=== PATIENT | female | born 1990 | race African-American/Black ===

== ENCOUNTER → 2019-06-08 | Outpatient (CLI) | payer MEDICAID ==
[2019-06-08 15:18] LABS: HCT 32.3 % (34.0-46.0); HGB 11.4 gm/dL (11.4-16.0); MCH 31.5 pg (25.0-35.0); MCHC 35.4 g/dL (31.0-37.0); Platelet Count 296 k/uL (150-450); RBC 3.63 m/uL (3.80-5.40); RDW 13.9 % (11.5-15.5); WBC 7.4 k/uL (3.8-10.6)
[2019-06-08 20:37] LABS: HIV 1 AB Non-Reactive (Non-Reactive); HIV AB P24 Non-Reactive (Non-Reactive); HIV P24 AG Non-Reactive (Non-Reactive)
[2019-06-08 21:03] LABS: African American GFR (CKD) 144.8 (60.0-200.0)
[2019-06-09 06:46] LABS: Toxoplasma Antibody (IgG) <3.0 IU/mL (<7.2); Toxoplasma Antibody (IgM) <3.0 AU/mL (<8.0)
== END | disposition home or self-care (01) ==
LOC: LABWHC1 14:53
PROVIDERS: ATTEND Obstetrics & Gynecology
DX: Z34.82 Encounter for supervision of other normal pregnancy, second trimester (principal); R53.83 Other fatigue
CPT/HCPCS: 36415; 82565; 82947; 85027; 86762; 86777; 86778; 86780; 86850; 86900; 86901; 87340; 87390

== ENCOUNTER → 2019-07-05 | Outpatient (CLI) | payer MEDICAID ==
--- NOTE | 2019-07-06 16:58 | US ---
EXAMINATION TYPE: US OB anatomy transabd DATE OF EXAM: 07/05/2019 COMPARISON: NONE HISTORY: O36.62X0 Large for dates 2nd trimester LGA TECHNIQUE: Transabdominal (TA) EXAM MEASUREMENTS: GESTATIONAL AGE / DATING Physician Established: (19 weeks/2 days) EDC: 11/27/19 Dates by LMP: unknown Dates by First Scan: no prior exam Dates by Current Scan for: (19 weeks/4 days) EDC: 11/25/19 SURVEY IUP: Single PLACENTA: Anterior PREVIA: No previa MARCO A: 12.0 cm Normal CERVICAL LENGTH (transabdominal: norm > 3.0cm): 3.0cm BIOMETRY PRESENTATION: Variable LIE: transverse head maternal LT BPD: 4.4 cm 19 weeks / 3 days HC: 17.4 cm 20 weeks / 0 days AC: 15.1 cm 20 weeks / 3 days FL: 3.1 cm 19 weeks / 5 days ESTIMATED WEIGHT IN GRAMS: 314 grams ESTIMATED WEIGHT IN LBS/OZ: 0 lbs. 11 oz. WEIGHT PERCENTAGE BASED ON ESTABLISHED DATE: 76 % HC/AC: 1.11 Normal FL/AC: 21% Normal HEART RATE: 146 bpm RHYTHM: Normal ANATOMY SEEN (within normal limits): * Lateral Vent (< 1 cm) 0.5 cm * Cisterna Magna (< 1.1 cm) 0.4 cm * Nuchal Fold (< 0.6 cm) 0.3 cm * Cerebellum (varies with age) 1.8 cm Choroid Plexus (bilateral) Midline Falx Cavus Septi Pellucidi Four Chamber Heart Outflow tracts: LVOT/RVOT Stomach Situs Nose / Lips Diaphragm Kidneys (bilateral) Bladder Cord Insert Three Vessel Cord Longitudinal Spine Transverse Spine Arms (bilateral) Legs (bilateral) IMPRESSION: 1. Single intrauterine gestation estimated at 19 weeks 4 days gestation based on current ultrasound m easurements. Cardiac activity measures 146 bpm.
== END | disposition home or self-care (01) ==
LOC: RADUSWWP 16:26
PROVIDERS: ATTEND Obstetrics & Gynecology
DX: O36.62X0 Maternal care for excessive fetal growth, second trimester, not applicable or unspecified (principal); Z3A.19 19 weeks gestation of pregnancy
CPT/HCPCS: 76811

== ENCOUNTER 2019-07-26 14:50 | Outpatient (CLI) | payer MEDICAID ==
[2019-07-26 15:34] VITALS: BP 107/64; PULSE 99; RESP 17; TEMP 97.7
--- NOTE | 2019-07-26 16:08 | US ---
EXAMINATION TYPE: US OB >= 14 wk fetus DATE OF EXAM: 07/26/2019 COMPARISON: None CLINICAL HISTORY: bleeding bleeding, cramping TECHNIQUE: Transabdominal (TA) GESTATIONAL AGE / DATING Physician Established: (22 weeks/2 days) EDC: 11/27/2019 Dates by Current Scan: (22 weeks/5 days) EDC: 11/24/2019 Beta HCG (if available): Not available at this time SURVEY IUP: Single PLACENTA: Anterior PREVIA: No Previa MARCO A: 23.0 cm Polyhydramnios CERVICAL LENGTH (transabdominal: norm > 3.0cm): 3.4 cm BIOMETRY PRESENTATION: Variable BPD: 5.5 cm 22 weeks / 6 days HC: 20.1 cm 22 weeks / 2 days AC: 17.7 cm 22 weeks / 5 days FL: 4.0 cm 23 weeks / 0 days ESTIMATED WEIGHT IN GRAMS: 526 grams ESTIMATED WEIGHT IN LBS/OZ: 1 lbs. 3 oz. WEIGHT PERCENTAGE BASED ON ESTABLISHED DATES: 65% HC/AC: 1.1 Normal FL/AC: 23% Normal HEART RATE: 161 bpm RHYTHM: Normal Single live IUP measuring 22 weeks 5 days. IMPRESSION: Limited survey. Single viable intrauterine corresponding to an ultrasound age of 22 w eeks 5 days with estimated date of delivery 11/24/2019.
--- NOTE | 2019-08-17 03:43 | P.MSEPDOC ---
Presenting Problems - Arrival Data Date of Arrival on Unit: 07/26/19 Time of Arrival on Unit: 14:50 Mode of Transport: Portable - Complaint OB-Reason for Admission/Chief Complaint: Other Comment: Pt of dr forde, presents to triage with c/o bleeding since night and. cramping that is always present but has become more intense and alarming accompanied by the bleeding. 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 Pt describes the bleeding as follows: . small amount, friday heavier and wore a pad, friday light bleeding, friday heavy in the morning then stopped in evening, some spotting this morning (friday). Medical History - Information : 2 Para: 1 Term: 1 : 0 Abortions: Spontaneous or Elective: 0 Number of Living Children: 1 - Gestational Age Gestational Age by MARCUS (wks/days): 22 Weeks and 2 Days Review of Systems - Review of Systems Constitutional: No problems Breast: No problems ENT: No problems Cardiovascular: No problems Respiratory: No problems Gastrointestinal: No problems Genitourinary: No problems Musculoskeletal: No problems Neurological: No problems Skin: No problems Vital Signs - Temperature Temperature: 97.7 F Temperature Source: Temporal Artery Scan - Pulse Right Brachial Pulse Rate: 99 Pulse Assessment Method: Automatic Cuff - Respirations Respiratory Rate: 17 Oxygen Delivery Method: Room Air O2 Sat by Pulse Oximetry: 100 - Blood Pressure Right Arm Blood Pressure: 107/64 Blood Pressure Mean: 78 Blood Pressure Source: Automatic Cuff Medical Screen Scoring (Pre) - Cervical Exam Dilation: Exam Deferred Effacement: Exam Deferred Membranes: Intact - Uterine Contractions Frequency: N/A Duration: N/A Intensity: N/A - Maternal Vital Signs Maternal Temperature: N/A Maternal Blood Pressure: N/A Signs of Preeclampsia: N/A Maternal Respirations: N/A - Maternal Trauma Maternal Trauma: N/A - Assessment - Baby A Baseline FHR: 160 Position: N/A Station: N/A - Total Score - Baby A Total Score - Baby A: 0 - Total Score - Baby B Total Score - Baby B: 0 - Total Score - Baby C Total Score - Baby C: 0 - Level of Risk - Baby A Level of Risk - Baby A: Low (0-5) - Level of Risk - Baby B Level of Risk - Baby B: Low (0-5) - Level of Risk - Baby C Level of Risk - Baby C: Low (0-5) - Pain Assessment Pain Location and Character: Lower, Abdomen Pain Scale Used: Numeric (1 - 10) Pain Intensity: 8 Pain Management Goal: 4 Pain Description: *Acute, Cramping Pain Radiation Location: none Pain Frequency: Intermittent Pain Duration: 2 Pain Duration Units: Days Pain Behavior: None Exhibited Pain Aggravating Factors: None Physician Notification (Pre) - Physician Notified Physician Notified Date: 07/26/19 Physician Notified Time: 15:20 Physician/Practitioner Notifed:: Dr Forde Spoke With: Dr Forde New Order Received: Yes (bedside u/s, rn to perform cervical exam if no previa) Medical Screen Scoring (Post) - Cervical Exam Dilation: 0 cm = 0 Membranes: Intact - Uterine Contractions Frequency: N/A Duration: N/A Intensity: N/A - Maternal Vital Signs Maternal Temperature: N/A Maternal Blood Pressure: N/A Signs of Preeclampsia: N/A Maternal Respirations: N/A - Maternal Trauma Maternal Trauma: N/A - Total Score Total Score - Baby A: 0 Total Score - Baby B: 0 Total Score - Baby C: 0 - Post Treatment Level of Risk Post Treatment Level of Risk - Baby A: Low (0-5) Physician Notification (Post) - Physician Notified Physician Notified Date: 07/26/19 Physician Notified Time: 16:20 Physician/Practitioner Notified:: dr forde Spoke With: dr forde New Order Received: Yes (dc home) Disposition - Disposition OB Disposition: Discharge to home, Written follow up instructions reviewed Discharge Date: 07/26/19 Discharge Time: 16:28 I agree with the RN Medical Screening Exam: Yes Risk & Benefit of care provided described in d/c instruction: Yes Diagnosis: ANTEPARTUM HEMORRHAGE W COAG DEFECT, UNSP, SECOND TRIMESTER
== END 2019-07-26 16:28 | disposition home or self-care (01) ==
LOC: FBPOP 14:50
PROVIDERS: ATTEND Obstetrics & Gynecology
DX: O46.002 Antepartum hemorrhage with coagulation defect, unspecified, second trimester (principal); Z3A.22 22 weeks gestation of pregnancy
CPT/HCPCS: 76805; 99213

== ENCOUNTER 2019-08-17 16:00 | Emergency (ER) | payer MEDICAID ==
[2019-08-17 16:08] VITALS: BP 105/61; PULSE 113; RESP 16; TEMP 98
--- NOTE | 2019-08-17 16:19 | ED ---
Female Urogenital HPI - General Chief complaint: Urogenital Stated complaint: Female Time Seen by Provider: 08/17/19 16:06 Source: patient Mode of arrival: ambulatory Limitations: no limitations - History of Present Illness Initial comments: 29-year-old female presented for vaginal discharge and external vaginal irritation. Patient states for the past week she has had increased vaginal discharge external vaginal irritation. Patient states she called her CASTING TRUCKER who thought that this is most likely physiological. Patient denies concern for STI. Denies abdominal pain cramping or vaginal bleeding. Patient states there is a slight odor. Denies any fishy odorous. Patient denies dysuria urgency frequency hematuria. Patient has no other complaints. Remaining review of system negative. Appears well upon arrival - Related Data Home Medications Medication Instructions Recorded Confirmed No Known Home Medications 07/26/19 07/26/19 Allergies Allergy/AdvReac Type Severity Reaction Status Date / Time No Known Allergies Allergy Verified 08/17/19 16:08 Review of Systems ROS Statement: Those systems with pertinent positive or pertinent negative responses have been documented in the HPI. ROS Other: All systems not noted in ROS Statement are negative. Past Medical History Past Medical History: No Reported History History of Any Multi-Drug Resistant Organisms: None Reported Past Surgical History: No Surgical Hx Reported Past Psychological History: No Psychological Hx Reported Smoking Status: Never smoker Past Alcohol Use History: None Reported Past Drug Use History: None Reported General Exam - General Exam Comments Initial Comments: General: The patient is awake and alert, in no distress, and does not appear acutely ill. Eye: Pupils are equal, round and reactive to light, extra-ocular movements are intact. No nystagmus. There is normal conjunctiva bilaterally. No signs of icterus. Gastrointestinal: Abdomen consistent with , non-tender abdomen. Mild external irritation noted. No lesiosn. Scant amount of thin white discharge in vaginal vault. Cervical os closed. No chandelier sign Musculoskeletal: Normal ROM, no tenderness. Strength 5/5. Sensation intact. Pulses equal bilaterally 2+. Neurological: A&O x 3. CN II-XII intact grossly, There are no obvious motor or sensory deficits. Coordination appears grossly intact. Speech is normal. Skin: Skin is warm and dry and no rashes or lesions are noted. Psychiatric: Cooperative, appropriate mood & affect, normal judgment. Limitations: no limitations Course Vital Signs 08/17/19 16:05 Temperature 98.0 F Pulse Rate 113 H Respiratory 16 Rate Blood Pressure 105/61 O2 Sat by Pulse 98 Oximetry Medical Decision Making - Medical Decision Making 29-year-old female presenting to the emergency department for evaluation of vaginal discharge. Told by CASTING TRUCKER most likely physiological. No odors or significant findings on physical examination. Scant amount of discharge with no bleeding. heart tones obtained no abdominal complaints. Patient appears well, encouraged to use monistat intra vaginally (nothing by mouth) if symptoms are persistent and to see OBGYN. Return parameters discussed patient discharged appearing well. Rapid trichomonas (-). Case discussed with Dr. Escobar who was agreeable with care plan. - Lab Data Lab Results 08/17/19 Range/Units 16:26 Trichomonas Ag (Rapid) Negative (Negative) Disposition Clinical Impression: Vaginal discharge, Vaginal irritation Disposition: HOME SELF-CARE Condition: Good Instructions (If sedation given, give patient instructions): Yeast Infection (ED) Additional Instructions: Please use medication as discussed, over the counter MONASTAT VAGINAL CREAM, NO ORAL MEDICATIONS. Please follow-up with OBGYN. Please return to emergency room if the symptoms increase or worsen or for any other concerns. Is patient prescribed a controlled substance at d/c from ED?: No Referrals: Nonstaff,Physician [Primary Care Provider] - 1-2 days Time of Disposition: 16:38
[2019-08-19 13:45] LABS: C. trachomatis,PCR Negative (Neg,Equiv); Chlamydia trachomatis Source Vagina; N. gonorrhoeae,PCR Negative (Neg,Equiv); Neisseria Source Vagina
== END 2019-08-17 16:50 | disposition home or self-care (01) ==
LOC: EC 16:00
DX: O99.89 Other specified diseases and conditions complicating pregnancy, childbirth and the puerperium (principal); N89.8 Other specified noninflammatory disorders of vagina; Z3A.25 25 weeks gestation of pregnancy
CPT/HCPCS: 87070; 87491; 87591; 87808; 99284

== ENCOUNTER → 2019-08-17 | Outpatient (CLI) | payer MEDICAID ==
[2019-08-17 16:18] LABS: HCT 32.5 % (34.0-46.0); HGB 10.9 gm/dL (11.4-16.0); MCH 31.3 pg (25.0-35.0); MCHC 33.4 g/dL (31.0-37.0); MCV 93.7 fL (80.0-100.0); Mean Platelet Volume 7.2; Platelet Count 248 k/uL (150-450); RBC 3.47 m/uL (3.80-5.40); RDW 13.2 % (11.5-15.5); WBC 9.8 k/uL (3.8-10.6)
== END ==
LOC: LABWHC1 14:48
PROVIDERS: ATTEND Obstetrics & Gynecology
DX: Z34.82 Encounter for supervision of other normal pregnancy, second trimester (principal); Z3A.00 Weeks of gestation of pregnancy not specified
CPT/HCPCS: 36415; 82950; 85027

== ENCOUNTER → 2019-10-28 | Outpatient (CLI) | payer MEDICAID ==
--- NOTE | 2019-10-28 16:32 | US ---
EXAMINATION TYPE: US OB >= 14 wk fetus DATE OF EXAM: 10/28/2019 COMPARISON: US second trimester July 26, 2019 CLINICAL HISTORY: O36.63X0 Large for dates 3rd trimester TECHNIQUE: Transabdominal (TA) GESTATIONAL AGE / DATING Physician Established: (35 weeks/5 days) EDC: 11/27/19 Dates by First Scan: Not available Dates by Current Scan: (34 weeks/1 days) EDC: 12/08/19 SURVEY IUP: Single PLACENTA: Anterior PREVIA: No Previa MARCO A: 12.8 cm CERVICAL LENGTH (transabdominal: norm > 3.0cm): 3.0 cm BIOMETRY PRESENTATION: Vertex BPD: 8.4 cm 33 weeks / 5 days HC: 30.8 cm 34 weeks / 3 days AC: 30.3 cm 34 weeks / 2 days FL: 6.8cm 35 weeks / 0 days ESTIMATED WEIGHT IN GRAMS: 2431 grams ESTIMATED WEIGHT IN LBS/OZ: 5 lbs. 6 oz. WEIGHT PERCENTAGE BASED ON ESTABLISHED DATES: 18% HC/AC: 1.0 FL/AC: 22.5 HEART RATE: 147 bpm RHYTHM: Normal Anatomy Seen: Stomach Kidneys Bladder Nose/Lips Cavum Septum Pellucidi 3 vessel chord Single live intrauterine gestation is redemonstrated. Normal cephalic presentation seen on current st udy. No suspicious cervical thinning. No placenta previa. Calculated amniotic fluid index within norm al limits. biometry measurements congruent and pelvis within normal limits with satisfactory in terval progression. Some anatomical structures noted within normal limits as detailed above during re al-time scanning less well-seen on still images saved. IMPRESSION: As above.
== END | disposition home or self-care (01) ==
LOC: RADUSWWP 14:55
PROVIDERS: ATTEND Obstetrics & Gynecology
DX: O36.63X1 Maternal care for excessive fetal growth, third trimester, fetus 1 (principal); Z3A.34 34 weeks gestation of pregnancy
CPT/HCPCS: 76805

== ENCOUNTER 2019-11-07 11:45 | Emergency (ER) | payer MEDICAID ==
[2019-11-07 12:28] VITALS: RESP 16
[2019-11-07 13:07] LABS: Amorphous Sediment,Urine Rare /hpf; Appearance,Urine Turbid (Clear); Bacteria,Urine Rare /hpf; Bilirubin,Urine Negative (Negative); Blood,Urine Small (Negative); Color,Urine Yellow; Glucose,Urine (UA) Negative (Negative); Ketones,Urine 1+ (Negative); Leukocyte Esterase,Urine Large (Negative); Mucus,Urine Few /hpf; Nitrite,Urine Negative (Negative); PH, Urine 6.5 (5.0-8.0); Protein,Urine Trace (Negative); RBC,Urine 9 /hpf (0-5); Specific Gravity,Urine 1.018 (1.001-1.035); Squamous Epithelial Cell,Urine 50 /hpf (0-4); Urobilinogen,Urine <2.0 mg/dL (<2.0); WBC,Urine 65 /hpf (0-5)
--- NOTE | 2019-11-07 13:55 | ED ---
Upper Extremity HPI - General Chief Complaint: Extremity Injury, Upper Stated Complaint: swollen hands/wrists Time Seen by Provider: 11/07/19 12:37 Source: patient, RN notes reviewed, old records reviewed Mode of arrival: ambulatory Limitations: no limitations - History of Present Illness Initial Comments: 29 year old female, currently 37 weeks . female, She presents with complaint of swollen hands for a few months. 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 She states that she has not had increased salt intake. She denies chest pain or shorntess of breath. Denies problems with including vaginal bleeding or discharge. Denies cramps. - Related Data Previous Rx's Medication Instructions Recorded Cephalexin [Keflex] 500 mg PO Q6HR 7 Days #28 cap 11/07/19 Allergies Allergy/AdvReac Type Severity Reaction Status Date / Time No Known Allergies Allergy Verified 11/07/19 12:28 Review of Systems ROS Statement: Those systems with pertinent positive or pertinent negative responses have been documented in the HPI. ROS Other: All systems not noted in ROS Statement are negative. Past Medical History Past Medical History: No Reported History History of Any Multi-Drug Resistant Organisms: None Reported Past Surgical History: No Surgical Hx Reported Past Psychological History: No Psychological Hx Reported Smoking Status: Never smoker Past Alcohol Use History: None Reported Past Drug Use History: None Reported General Exam - General Exam Comments Initial Comments: 29 year old female, no distress. Limitations: no limitations General appearance: alert, in no apparent distress Head exam: Present: atraumatic, normocephalic, normal inspection Eye exam: Present: normal appearance, PERRL, EOMI. Absent: scleral icterus, conjunctival injection, periorbital swelling ENT exam: Present: normal exam, mucous membranes moist Neck exam: Present: normal inspection. Absent: tenderness, meningismus, lymphadenopathy Respiratory exam: Present: normal lung sounds bilaterally. Absent: respiratory distress, wheezes, rales, rhonchi, stridor Cardiovascular Exam: Present: regular rate, normal rhythm, normal heart sounds. Absent: systolic murmur, diastolic murmur, rubs, gallop, clicks GI/Abdominal exam: Present: soft, normal bowel sounds. Absent: distended, tenderness, guarding, rebound, rigid Extremities exam: Present: normal inspection, full ROM, normal capillary refill, other (minimal swelling in bilateral hands. Normal pulses distally, normal sensation, and full ROM of fingers and wrist. ). Absent: tenderness, pedal edema, joint swelling, calf tenderness Back exam: Present: normal inspection Neurological exam: Present: alert, oriented X3, CN II-XII intact Psychiatric exam: Present: normal affect, normal mood Skin exam: Present: warm, dry, intact, normal color. Absent: rash Course Vital Signs 11/07/19 11/07/19 12:25 14:06 Temperature 98.2 F 98.7 F Pulse Rate 102 H 118 H Respiratory 16 16 Rate Blood Pressure 109/64 109/62 O2 Sat by Pulse 99 100 Oximetry Medical Decision Making - Medical Decision Making 29 year old female, 37 weeks . Presents with weeks of hand swelling. Discussed this is due to being . Discussed using green tea and increasing fluid intake, and decreasing salt intake. She has normal BP. UA shows contimination, but will treat with keflex until urine culture complete. Discussed return parameters. - Lab Data Lab Results 11/07/19 Range/Units 12:45 Urine Color Yellow Urine Appearance Turbid H (Clear) Urine pH 6.5 (5.0-8.0) Ur Specific [place]ona 1.018 (1.001-1.035) Urine Protein Trace H (Negative) Urine Glucose (UA) Negative (Negative) Urine Ketones 1+ H (Negative) Urine Blood Small H (Negative) Urine Nitrite Negative (Negative) Urine Bilirubin Negative (Negative) Urine Urobilinogen <2.0 (<2.0) mg/dL Ur Leukocyte Esterase Large H (Negative) Urine RBC 9 H (0-5) /hpf Urine WBC 65 H (0-5) /hpf Urine WBC Clumps Many H (None) /hpf Ur Squamous Epith Cells 50 H (0-4) /hpf Amorphous Sediment Rare H (None) /hpf Urine Bacteria Rare H (None) /hpf Urine Mucus Few H (None) /hpf Disposition Clinical Impression: Hand edema, UTI (urinary tract infection) during Disposition: HOME SELF-CARE Condition: Good Additional Instructions: Decrease salt intake. Follow-up with primary care physician. Return to emergency department if any alarming signs or symptoms occur. Prescriptions: Cephalexin [Keflex] 500 mg PO Q6HR 7 Days #28 cap Is patient prescribed a controlled substance at d/c from ED?: No Referrals: None,Stated [Primary Care Provider] - 1-2 days Time of Disposition: 13:55
[2019-11-07 14:07] VITALS: BP 109/62; PULSE 118; TEMP 98.7
== END 2019-11-07 14:05 | disposition home or self-care (01) ==
LOC: EC 11:45
DX: O12.03 Gestational edema, third trimester (principal); O23.43 Unspecified infection of urinary tract in pregnancy, third trimester; Z3A.37 37 weeks gestation of pregnancy
CPT/HCPCS: 81001; 87086; 99284

== ENCOUNTER 2019-11-21 17:32 | Inpatient (IN) | payer MEDICAID ==
[2019-11-21] MEDS ORDERED: AMPICILLIN 2,000 MG in SODIUM CHLORIDE 0.9% 100 ML IVPB STA (18:11)
[2019-11-21] MEDS ORDERED: CARBOPROST TROMETHAMINE 250 MCG/ML 1 ML AMP IM PRN (18:11)
[2019-11-21] MEDS ORDERED: TERBUTALINE 1 MG/ML VIAL SQ PRN (18:11)
[2019-11-21] MEDS ORDERED: OXYTOCIN 10 UNIT/ML 1 ML VIAL IM PRN (18:11)
[2019-11-21] MEDS ORDERED: METHYLERGONOVINE 0.2 MG/ML 1 ML AMP IM PRN (18:11)
[2019-11-21] MEDS ORDERED: LIDOCAINE 0.5% (PF) 5 MG/ML (50 ML SDV) SQ PRN (18:11)
[2019-11-21] MEDS ORDERED: OXYTOCIN 30 UNITS/500 ML NS 30 UNIT in SALINE 1 500ML.BAG IV SCH (18:15)
[2019-11-21] MEDS ORDERED: LACTATED RINGERS 1,000 ML IV SCH (18:15)
[2019-11-21] MEDS ORDERED: BUTORPHANOL 1 MG/ML 1 ML VIAL IV PRN (18:21)
[2019-11-21] MEDS: LACTATED RINGERS 1,000 ML IV SCH ×2 (18:25→23:59)
[2019-11-21 18:30] LABS: Basophils # (A) 0.1 k/uL (0-0.2); Basophils % (A) 1 %; Eosinophils # (A) 0.1 k/uL (0-0.7); Eosinophils % (A) 2 %; HCT 35.8 % (34.0-46.0); HGB 12.1 gm/dL (11.4-16.0); Lymphocytes % (A) 32 %; MCH 31.3 pg (25.0-35.0); MCHC 33.7 g/dL (31.0-37.0); MCV 92.8 fL (80.0-100.0); Mean Platelet Volume 9.2; Monocytes # (A) 0.3 k/uL (0-1.0); Monocytes % (A) 4 %; Neutrophils # (A) 3.7 k/uL (1.3-7.7); Neutrophils % (A) 58 %; Platelet Count 219 k/uL (150-450); RBC 3.85 m/uL (3.80-5.40); RDW 13.9 % (11.5-15.5); WBC 6.3 k/uL (3.8-10.6)
[2019-11-21] MEDS: AMPICILLIN 1,000 MG in SODIUM CHLORIDE 0.9% 50 ML IVPB SCH (22:26)
--- NOTE | 2019-11-22 00:16 | P.HPOB ---
History of Present Illness H&P Date: 11/22/19 Chief Complaint: Spontaneous rupture of membranes This is a 29-year-old female 2 para 1 with an estimated date of confinement of 11/27/2019, estimated gestational age of 39-2/7 weeks, who presents to labor and delivery with complaints of spontaneous rupture of membra james with clear fluid noted at approximately 5 PM. She denied feeling any regular contractions. care has been with Dr. Forde and has been uncomplicated. labs: GC/chlamydia-negative Toxoplasma screen-negative Hemoglobin-11.4 Blood type-O+ Antibody screen-negative Random glucose-77 Hepatitis B surface antigen-negative on reactive Rubella-immune Syphilis antibody-negative nonreactive HIV-nonreactive 1 hour Glucola-112 Group B streptococcus-positive Obstetrical history: . History of 1 vaginal delivery at 41 weeks with no complications. Social history: She is single. She works full-time as a JET ENGINE MECHANIC. Review of Systems Constitutional: Denies chills, Denies fever Eyes: denies blurred vision, denies pain Ears, nose, mouth and throat: Denies headache, Denies sore throat Cardiovascular: Denies chest pain, Denies shortness of breath Respiratory: Denies cough Gastrointestinal: Denies abdominal pain, Denies diarrhea, Denies nausea, Denies vomiting Genitourinary: Reports pelvic pain, Reports Musculoskeletal: Reports low back pain Integumentary: Denies pruritus, Denies rash Neurological: Denies numbness, Denies weakness Psychiatric: Denies anxiety, Denies depression Past Medical History Past Medical History: No Reported History History of Any Multi-Drug Resistant Organisms: None Reported Past Surgical History: No Surgical Hx Reported Past Psychological History: No Psychological Hx Reported Smoking Status: Never smoker Past Alcohol Use History: None Reported Past Drug Use History: None Reported - Past Family History Mother Family Medical History: No Reported History Medications and Allergies Home Medications Medication Instructions Recorded Confirmed Type Tco-Mhns-Mwfwe Acid 1 cap PO DAILY 11/21/19 11/21/19 History [-U Capsule (formulary)] Allergies Allergy/AdvReac Type Severity Reaction Status Date / Time No Known Allergies Allergy Verified 11/07/19 12:28 Exam Osteopathic Statement: *. No significant issues noted on an osteopathic structural exam other than those noted in the History and Physical/Consult. Vital Signs Temp Pulse Resp BP 11/21/19 18:19 99.5 F 118 H 16 114/76 Intake and Output 11/21/19 11/21/19 11/22/19 14:59 22:59 06:59 Other: # Voids 1 Weight 81.647 kg HEENT: Within normal limits Heart: Regular rate and rhythm Lungs: Clear to auscultation bilaterally Abdomen: Cervix: On admission is 4 cm/60%/-3 station heart tones: Reactive with category 1 tracing on admission. Contractions: Irregular Extremities: Negative Homans Results Result Diagrams: 11/21/19 18:10 Assessment and Plan (1) 39 weeks gestation of Current Visit: Yes Status: Acute Code(s): Z3A.39 - 39 WEEKS GESTATION OF SNOMED Code(s): 63391228 (2) Group B Streptococcus carrier, +RV culture, currently Current Visit: Yes Status: Acute Code(s): O99.820 - STREPTOCOCCUS B CARRIER STATE COMPLICATING SNOMED Code(s): 6668594467462 Plan: Admission for spontaneous rupture of membranes. Oxytocin augmentation of labor. Antibiotic prophylaxis for group B streptococcus. Pain management as desired. Expectant management.
[2019-11-22] MEDS ORDERED: ROPIVACAINE 100 MG, fentaNYL (PF) 200 MCG in SODIUM CHLORIDE 0.9% 76 ML EPIDURAL ONE (00:40)
[2019-11-22] MEDS: LACTATED RINGERS 1,000 ML IV SCH (00:54)
[2019-11-22] MEDS: AMPICILLIN 1,000 MG in SODIUM CHLORIDE 0.9% 50 ML IVPB SCH (02:38)
--- NOTE | 2019-11-22 03:21 | P.PROBDLV ---
Vaginal Delivery Note - . Vaginal Delivery Note: The patient progressed to complete dilation after oxytocin augmentation of labor and epidural anesthesia. She did receive ampicillin while in labor due to positive group B streptococcus. Once reaching complete, she began pushing. Infant's head came to a crown. With one further push, the 's head delivered across the perineum followed by the anterior shoulder. Nose and mouth were bulb suctioned at the perineum. With one further push the remainder the easily delivered reducing nuchal cord times one around the body with delivery. A viable male is noted with scores of 6 at 1 minute and 8 at 5 minutes. weight is pending at this time. Placenta delivered shortly thereafter, intact, with a three-vessel cord. Uterus contracted well after oxytocin was given and uterine massage was carried out. Inspection of the perineum revealed no perineal lacerations. There was a mild abrasion on the outer perineum that was hemostatic. Estimated blood loss is approximately 100 mL's. Both mother and infant are in stable condition.
[2019-11-22] MEDS ORDERED: diphenhydrAMINE 25 MG CAP PO PRN (03:53)
[2019-11-22] MEDS ORDERED: ZOLPIDEM 5 MG TAB PO PRN (03:53)
[2019-11-22] MEDS ORDERED: diphenhydrAMINE 50 MG CAP PO PRN (03:53)
[2019-11-22] MEDS ORDERED: HYDROCORTISONE 2.5% RECTAL CREAM 30 GM TUBE RECTAL PRN (03:53)
[2019-11-22] MEDS ORDERED: OXYTOCIN 20 UNITS/1000 ML NS 1,000 ML IV SCH (03:53)
[2019-11-22] MEDS ORDERED: BENZOCAINE/MENTHOL SPRAY 1 GM/SPRAY AEROSOL TOPICAL PRN (03:53)
[2019-11-22] MEDS ORDERED: WITCH HAZEL 1 EACH MED..PAD TOPICAL PRN (03:53)
[2019-11-22] MEDS ORDERED: diphenhydrAMINE 50 MG/ML 1 ML VIAL IVP PRN ×2 (03:53)
[2019-11-22] MEDS ORDERED: ACETAMINOPHEN TAB 325 MG TAB PO PRN (03:53)
[2019-11-22] MEDS ORDERED: SIMETHICONE 80 MG CHEWABLE PO PRN (03:53)
[2019-11-22] MEDS ORDERED: LANOLIN CREAM 5 GM TUBE TOPICAL PRN (03:53)
[2019-11-22] MEDS: SENNOSIDES-DOCUSATE SODIUM 1 EACH TAB PO SCH ×2 (09:05→20:14)
[2019-11-22] MEDS: IBUPROFEN 600 MG TAB PO PRN ×2 (13:04→21:11)
[2019-11-22 23:20] VITALS: TEMP 98
[2019-11-23 06:33] LABS: Basophils % (A) 0 %; Eosinophils # (A) 0.1 k/uL (0-0.7); Eosinophils % (A) 1 %; HCT 31.7 % (34.0-46.0); HGB 10.8 gm/dL (11.4-16.0); Lymphocytes # (A) 2.3 k/uL (1.0-4.8); Lymphocytes % (A) 29 %; MCH 31.2 pg (25.0-35.0); MCHC 33.9 g/dL (31.0-37.0); Mean Platelet Volume 9.7; Monocytes # (A) 0.3 k/uL (0-1.0); Monocytes % (A) 4 %; Neutrophils # (A) 4.9 k/uL (1.3-7.7); Neutrophils % (A) 63 %; Platelet Count 205 k/uL (150-450); RBC 3.45 m/uL (3.80-5.40); RDW 14.1 % (11.5-15.5); WBC 7.8 k/uL (3.8-10.6)
[2019-11-23 07:51] VITALS: BP 119/59; PULSE 93; RESP 16
--- NOTE | 2019-11-23 08:16 | P.DS ---
Providers Date of admission: 11/21/19 18:00 Expected date of discharge: 11/23/19 Attending physician: Kamilla Baker Primary care physician: Lenka Forde - Discharge Diagnosis(es) (1) Normal vaginal delivery Current Visit: Yes Status: Acute Hospital Course: Pt presented with SROM at term. She had IV antibiotics for GBS+ status and then pitocin augmentation. She underwent a normal vaginal delivery. PP course was uncomplicated. She denies N/V, F/C, CP, SOB, calf pain. She will be discharged home PPD #1 in stable condition to follow up with me in 6 weeks. Plan - Discharge Summary New Discharge Prescriptions: New Ibuprofen [Motrin] 600 mg PO Q6HR PRN #30 tab PRN Reason: Mild Pain Or Fever >= 100.5 No Action Yam-[id number]-[id number] Acid [-U Capsule (formulary)] 1 cap PO DAILY Discharge Medication List [id number]-[id number] Acid [-U Capsule (formulary)] 1 cap PO DAILY 11/21/19 [History] Ibuprofen [Motrin] 600 mg PO Q6HR PRN #30 tab 11/23/19 [Rx] Follow up Appointment(s)/Referral(s): Lenka Forde DO [Primary Care Provider] - 6 Weeks Discharge Disposition: HOME SELF-CARE
[2019-11-23] MEDS: SENNOSIDES-DOCUSATE SODIUM 1 EACH TAB PO SCH (08:50)
== END 2019-11-23 11:15 | disposition home or self-care (01) | DRG 807 ==
LOC: FBPOP 17:32 → 4FBP 18:00
PROVIDERS: ADMIT Obstetrics & Gynecology; ATTEND Obstetrics & Gynecology
PROC: 10E0XZZ Delivery of Products of Conception, External Approach (ICD-10-PCS; principal; 2019-11-22)
DX: O99.824 Streptococcus B carrier state complicating childbirth (principal); Z37.0 Single live birth; Z3A.39 39 weeks gestation of pregnancy
CPT/HCPCS: 59025; 84112; 85025; 86850; 86900; 86901; 99213

== ENCOUNTER → 2020-03-08 | Outpatient (CLI) | payer MEDICAID | END | disposition home or self-care (01) | LOC: LABWHC1 09:44 | PROVIDERS: ATTEND Obstetrics & Gynecology | DX: N91.2 Amenorrhea, unspecified (principal) | CPT/HCPCS: 36415; 84702 ==

== ENCOUNTER → 2020-12-07 | Outpatient (CLI) | payer OTHER | END | disposition home or self-care (01) | LOC: RADUSWWP 16:12 | PROVIDERS: ATTEND Obstetrics & Gynecology | DX: Z53.9 Procedure and treatment not carried out, unspecified reason (principal) ==

== ENCOUNTER → 2020-12-12 | Outpatient (CLI) | payer OTHER ==
--- NOTE | 2020-12-12 13:53 | US ---
EXAMINATION TYPE: Transabdominal DATE OF EXAM: 12/12/2020 1:17 PM COMPARISON: NONE CLINICAL HISTORY: Z36 Confirm dates. unknown lmp, . Positive beta-hCG test. EXAM PERFORMED: OBTA EXAM MEASUREMENTS: GESTATIONAL AGE / DATING Physician Established: Not yet established Dates by LMP: LMP unknown Dates by First Scan: No previous this is first scan Dates by Current Scan for: (8 weeks/5 days) EDC: 07/19/2021 MATERNAL ANATOMY Uterus: 10.9 x 7.0 x 6.4cm Right Ovary: 2.3 x 2.0 x 1.5cm Left Ovary: 3.0 x 2.1 x 1.5cm Post CDS / Adnexa: wnl Presence of free fluid: no Presence of corpus luteal cyst: 1.7 x 2.0 x 1.2cm left ovary Presence of subchorionic bleed: no GESTATION / SURVEY CRL: 2.0cm ( 8 weeks/5 days) MSD: wnl Yolk Sac (normal less than 6mm): 0.3cm Heart Rate: 172 bpm Rhythm: normal IUP: Viable IUP Date of LMP: unknown Single live intrauterine gestation as gestational sac, yolk sac, and pole are present. No free fluid in pelvic cul-de-sac. Both ovaries are identified. Within the left ovary there is 2.0 cm peripheral hypoechoic lesion thoug ht to reflect corpus luteal cyst. No extraovarian adnexal masses. IMPRESSION: Single live intrauterine gestation is confirmed, mean crown-rump length 2.0 cm correspond ing to 8 week 5 day old fetus.
== END ==
LOC: RADUSWWP 13:02
PROVIDERS: ATTEND Obstetrics & Gynecology
DX: Z34.91 Encounter for supervision of normal pregnancy, unspecified, first trimester (principal); Z3A.08 8 weeks gestation of pregnancy
CPT/HCPCS: 76801

== ENCOUNTER 2021-06-27 00:21 | Emergency (ER) | payer OTHER ==
[2021-06-27 00:33] VITALS: BP 100/56; PULSE 103; RESP 20; TEMP 98.3
[2021-06-27] MEDS ORDERED: LIDOCAINE 1%-EPI 1:100,000 20 ML VIAL SQ STA (00:57)
--- NOTE | 2021-06-27 01:38 | ED ---
Skin/Abscess/FB HPI - General Chief complaint: Skin/Abscess/Foreign Body Stated complaint: thigh abscess Time Seen by Provider: 06/27/21 00:34 Source: patient Mode of arrival: ambulatory Limitations: no limitations - History of Present Illness Initial comments: 31-year-old female, 37 weeks , presents emergency Department with a chief complaint of an abscess on the right thigh. Patient reports he has been gradually increasing over the last week. Patient reports she had a previous abscess in the exact same spot several years back. Patient reports tenderness over the region she was able to squeeze out some pustular discharge and some blood yesterday. She denies any fevers or chills at home. She reports the region is tender whenever she is walking and her thighs are rubbing. - Related Data Home Medications Medication Instructions Recorded Confirmed Ohd-Ihbw-Nmrbr Acid 1 cap PO DAILY 11/21/19 11/21/19 [-U Capsule (formulary)] Previous Rx's Medication Instructions Recorded Ibuprofen [Motrin] 600 mg PO Q6HR PRN #30 tab 11/23/19 Cephalexin [Keflex] 500 mg PO Q6HR #40 cap 06/27/21 Allergies Allergy/AdvReac Type Severity Reaction Status Date / Time No Known Allergies Allergy Verified 06/27/21 00:30 Review of Systems ROS Statement: Those systems with pertinent positive or pertinent negative responses have been documented in the HPI. ROS Other: All systems not noted in ROS Statement are negative. Past Medical History Past Medical History: No Reported History History of Any Multi-Drug Resistant Organisms: None Reported Past Surgical History: No Surgical Hx Reported Past Psychological History: No Psychological Hx Reported Smoking Status: Never smoker Past Alcohol Use History: None Reported Past Drug Use History: None Reported - Past Family History Mother Family Medical History: No Reported History General Exam Limitations: no limitations General appearance: alert, in no apparent distress Head exam: Present: atraumatic, normocephalic, normal inspection Eye exam: Present: normal appearance, PERRL, EOMI Pupils: Present: normal accommodation ENT exam: Present: normal exam, normal oropharynx, mucous membranes moist Neck exam: Present: normal inspection, full ROM. Absent: tenderness Respiratory exam: Present: normal lung sounds bilaterally. Absent: respiratory distress, wheezes, rales, rhonchi, stridor Cardiovascular Exam: Present: regular rate, normal rhythm, normal heart sounds. Absent: systolic murmur, diastolic murmur Extremities exam: Present: normal inspection, full ROM, tenderness (Tenderness over the proximal, medial right thigh. Abscess measuring about 3 cm in diameter. Mild surrounding erythema), normal capillary refill. Absent: pedal edema, joint swelling, calf tenderness (He has been) Back exam: Present: normal inspection, full ROM Neurological exam: Present: alert, oriented X3 Psychiatric exam: Present: normal affect, normal mood Skin exam: Present: warm, dry, intact, normal color Course Vital Signs 06/27/21 00:27 Temperature 98.3 F Pulse Rate 103 H Respiratory 20 Rate Blood Pressure 100/56 O2 Sat by Pulse 99 Oximetry Procedures - Incision & Drainage Consent Obtained: verbal consent, written consent Indication: Abscess Site: lower extremity Size (cm): 3 Anesthetic Used: lidocaine 1%, with epi Amount (mLs): 3 I&D Cleaning Method: Alcohol Wipe Sterile Field Used?: No Scalpel Used: #11 Needle Aspiration Performed?: No Irrigation Performed?: No I&D Drainage Obtained: Pus, Blood Culture Obtained?: No Complications: pain, bleeding Patient Tolerated Procedure: well, no complications Medical Decision Making - Medical Decision Making 31-year-old female presented to the emergency department with a chief complaint of an abscess. On physical examination, fluctuant region with mild surrounding erythema noted on the medial aspect of her proximal right thigh. Incision and drainage was performed after the area was thoroughly disaffected anesthetized with lidocaine with epinephrine. I was able to remove pustular drainage with minimal blood. Patient will be started on Keflex. I consulted with inpatient pharmacy regarding MRSA coverage. No antibiotic will be started for that at this time due to her . Ultimately the incision and drainage should be the best treatment for her abscess. Patient was advised to continue applying warm compresses to the region. 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 She is understanding and agreeable. Strict return parameters were thoroughly discussed the patient was understanding and agreeable. Case discussed with Dr. Kristen Jordan Clinical Impression: Abscess Disposition: HOME SELF-CARE Condition: Stable Instructions (If sedation given, give patient instructions): Abscess Incision and Drainage (ED), Abscess (ED) Additional Instructions: Please return to the Emergency Department if symptoms worsen or any other concerns. Prescriptions: Cephalexin [Keflex] 500 mg PO Q6HR #40 cap Is patient prescribed a controlled substance at d/c from ED?: No Referrals: Derek Anderson MD [Primary Care Provider] - 1-2 days Time of Disposition: 01:53
== END 2021-06-27 02:05 | disposition home or self-care (01) ==
LOC: EC 00:21
DX: O99.713 Diseases of the skin and subcutaneous tissue complicating pregnancy, third trimester (principal); L02.415 Cutaneous abscess of right lower limb; Z3A.37 37 weeks gestation of pregnancy
CPT/HCPCS: 10060; 99282

== ENCOUNTER 2021-07-09 23:40 | Inpatient (IN) | payer OTHER ==
[2021-07-10 00:15] LABS: Glucose,Whole Blood 102 mg/dL (75-99)
[2021-07-10] MEDS ORDERED: METHYLERGONOVINE 0.2 MG/ML 1 ML AMP IM PRN (00:17)
[2021-07-10] MEDS ORDERED: OXYTOCIN 10 UNIT/ML 1 ML VIAL IM PRN (00:17)
[2021-07-10] MEDS ORDERED: LIDOCAINE 0.5% (PF) 5 MG/ML (50 ML SDV) SQ PRN (00:17)
[2021-07-10] MEDS ORDERED: CARBOPROST TROMETHAMINE 250 MCG/ML 1 ML AMP IM PRN (00:17)
[2021-07-10] MEDS ORDERED: TERBUTALINE 1 MG/ML VIAL SQ PRN (00:17)
[2021-07-10] MEDS ORDERED: LACTATED RINGERS 1,000 ML IV SCH (00:30)
[2021-07-10 01:00] LABS: Basophils % (A) 0 %; Eosinophils # (A) 0.2 k/uL (0-0.7); Eosinophils % (A) 2 %; HCT 34.6 % (34.0-46.0); HGB 11.6 gm/dL (11.4-16.0); Lymphocytes % (A) 26 %; MCHC 33.5 g/dL (31.0-37.0); MCV 92.7 fL (80.0-100.0); Mean Platelet Volume 8.5; Monocytes # (A) 0.4 k/uL (0-1.0); Monocytes % (A) 5 %; Neutrophils % (A) 64 %; Platelet Count 243 k/uL (150-450); RBC 3.74 m/uL (3.80-5.40); WBC 7.7 k/uL (3.8-10.6)
[2021-07-10] MEDS ORDERED: OXYTOCIN 30 UNITS/500 ML NS 30 UNIT in SALINE 1 500ML.BAG IV SCH ×2 (01:00→02:00)
--- NOTE | 2021-07-10 01:15 | P.HPOB ---
History of Present Illness H&P Date: 07/10/21 Chief Complaint: SROM 31 year old presents at 38 weeks 6 days with SROM and 8/80/-3. She is lorie irregularly. heart tones 140 with moderate variability and a ccels. Review of Systems All systems: negative Constitutional: Denies chills, Denies fever Eyes: denies blurred vision, denies pain Ears, nose, mouth and throat: Denies headache, Denies sore throat Cardiovascular: Denies chest pain, Denies shortness of breath Respiratory: Denies cough Gastrointestinal: Denies abdominal pain, Denies diarrhea, Denies nausea, Denies vomiting Genitourinary: Denies dysuria, Denies hematuria Musculoskeletal: Denies myalgias Integumentary: Denies pruritus, Denies rash Neurological: Denies numbness, Denies weakness Psychiatric: Denies anxiety, Denies depression Endocrine: Denies fatigue, Denies weight change Past Medical History Past Medical History: No Reported History Additional Past Medical History / Comment(s): GDMA1-blood sugar on admission 102. History of Any Multi-Drug Resistant Organisms: None Reported Past Surgical History: No Surgical Hx Reported Past Anesthesia/Blood Transfusion Reactions: No Reported Reaction Past Psychological History: No Psychological Hx Reported Smoking Status: Never smoker Past Alcohol Use History: None Reported Past Drug Use History: None Reported - Past Family History Mother Family Medical History: No Reported History Medications and Allergies Home Medications Medication Instructions Recorded Confirmed Type No Known Home Medications 07/09/21 07/09/21 History Allergies Allergy/AdvReac Type Severity Reaction Status Date / Time No Known Allergies Allergy Verified 07/09/21 23:49 Exam Osteopathic Statement: *. No significant issues noted on an osteopathic structural exam other than those noted in the History and Physical/Consult. Vital Signs Temp Pulse Resp BP Pulse Ox 07/10/21 00:17 96.5 F L 101 H 16 114/65 100 07/09/21 23:48 96.5 F L 101 H 16 114/65 100 Intake and Output 07/09/21 07/09/21 07/10/21 14:59 22:59 06:59 Other: Weight 82.1 kg Heart: Regular rate and rhythm Lungs: Clear to auscultation bilaterally Abdomen: Soft, nontender Extremities: Negative Homans sign Results Result Diagrams: 10/05/21 00:15 Abnormal Lab Results - Last 24 Hours (Table) 07/10/21 07/10/21 Range/Units 00:13 00:15 RBC 3.74 L (3.80-5.40) m/uL POC Glucose (mg/dL) 102 H (75-99) mg/dL Assessment and Plan (1) Spontaneous rupture of membranes Current Visit: Yes Status: Acute Code(s): VMN6184 - SNOMED Code(s): 627352268 (2) 38 weeks gestation of Current Visit: Yes Status: Acute Code(s): Z3A.38 - 38 WEEKS GESTATION OF SNOMED Code(s): 99177814 (3) Normal labor Current Visit: Yes Status: Acute Code(s): O80 - ENCOUNTER FOR FULL-TERM UNCOMPLICATED DELIVERY; Z37.9 - OUTCOME OF DELIVERY, UNSPECIFIED SNOMED Code(s): 44382570 Plan: 1. pitocin augmentation if necessary 2. anticipate normal vaginal delivery
--- NOTE | 2021-07-10 01:20 | P.MSEPDOC ---
Presenting Problems - Arrival Data Date of Arrival on Unit: 07/10/21 Time of Arrival on Unit: 00:00 Mode of Transport: Wheelchair - Complaint OB-Reason for Admission/Chief Complaint: Rule Out SROM Comment: Patient reports to triage [facility] of [facility] on 07/09 @ [id number] with reports of clear fluid. Medical History - Information : 3 Para: 2 Term: 2 : 0 Abortions: Spontaneous or Elective: 0 Number of Living Children: 2 - Gestational Age Gestational Age by MARCUS (wks/days): 38 Weeks and 5 Days - History Complications: GDM Review of Systems - Review of Systems Constitutional: No problems Breast: No problems ENT: No problems Cardiovascular: No problems Respiratory: No problems Gastrointestinal: No problems Genitourinary: No problems Musculoskeletal: No problems Neurological: No problems Skin: No problems Vital Signs - Temperature Temperature: 96.5 F Temperature Source: Temporal Artery Scan - Pulse Right Brachial Pulse Rate: 101 Pulse Assessment Method: Automatic Cuff - Respirations Respiratory Rate: 16 Oxygen Delivery Method: Room Air O2 Sat by Pulse Oximetry: 100 - Blood Pressure Right Arm Blood Pressure: 114/65 Blood Pressure Mean: 81 Blood Pressure Source: Automatic Cuff Medical Screen Scoring - Cervical Exam Dilation (cm): 8 Effacement (%): 100 Station: -2 Membranes: Ruptured - Uterine Contractions Frequency From (mins): 3 Frequency To (mins): 4 Duration From (seconds): 40 Duration To (seconds): 50 Intensity: Moderate Resting: Soft to palpation - Assessment - Baby A Baseline FHR: 140 Heart Rate - NICHD Category: Category I (Normal) Physician Notification - Physician Notified Physician Notified Date: 07/10/21 Physician Notified Time: 00:00 Physician: Lenka Forde New Order Received: Yes - Notification Comment Comment: Dr. Forde called with report on positive amnisure, cervical exam, and FHT. Patient ot be admitted to unit. Maternal Triage Index - Maternal Triage Index Presenting for scheduled procedure w/no complaint: No - Stat/Priority 1 Stat Priority 1: No - Urgent/Priority 2 Urgent Priority 2: No - Prompt/Priority 3 Prompt Priority 3: Yes Criteria Met for Priority 3: SROM verified by positive amnisure. Disposition - Disposition OB Disposition: Admit Discharge Date: 07/10/21 Discharge Time: 00:00 I agree with the RN Medical Screening Exam: Yes Case reviewed; plan agreed upon as documented in EMR&OBIX.: Yes Diagnosis: FULL-TERM CESAR ROM, ONSET LABOR WITHIN 24 HOURS OF RUPTURE
[2021-07-10] MEDS ORDERED: LANOLIN CREAM 5 GM TUBE TOPICAL PRN (01:49)
[2021-07-10] MEDS ORDERED: HYDROCORTISONE 2.5% RECTAL CREAM 30 GM TUBE RECTAL PRN (01:49)
[2021-07-10] MEDS ORDERED: SIMETHICONE 80 MG CHEWABLE PO PRN (01:49)
[2021-07-10] MEDS ORDERED: diphenhydrAMINE 50 MG/ML 1 ML VIAL IVP PRN ×2 (01:49)
[2021-07-10] MEDS ORDERED: BENZOCAINE/MENTHOL SPRAY 1 GM/SPRAY AEROSOL TOPICAL PRN (01:49)
[2021-07-10] MEDS ORDERED: diphenhydrAMINE 25 MG CAP PO PRN (01:49)
[2021-07-10] MEDS ORDERED: ZOLPIDEM 5 MG TAB PO PRN (01:49)
[2021-07-10] MEDS ORDERED: diphenhydrAMINE 50 MG CAP PO PRN (01:49)
[2021-07-10] MEDS ORDERED: ACETAMINOPHEN TAB 325 MG TAB PO PRN (01:49)
--- NOTE | 2021-07-10 01:54 | P.PROBDLV ---
Vaginal Delivery Note - . Vaginal Delivery Note: 31 year old presents at 38 weeks 6 days with SROM and 8/80/-3. She is lorie irregularly. heart tones 140 with moderate variability and accels. Pitocin augmentation was started. Patient started to get recently uncomfortable and had a bowel movement. The nurse checked her cervox, she was complete and I was called to the room as the patient pushed once and delivered a viable female infant at 1:34 AM. I walked in just after the baby delivered on the bed. As the baby was vigorously crying, the nose mouth were bulb suctioned the cord was clamped and cut and infant placed on mother's abdomen. Apgars 9, 9, weight 7 lbs. 14 oz. Placenta delivered spontaneously, intact with three- vessel cord at 1:38 AM. Vagina, cervix, perineum inspected. No lacerations noted. Estimated blood loss 150 mL. Mother and baby in stable condition.
[2021-07-10] MEDS: IBUPROFEN 600 MG TAB PO PRN ×2 (02:16→08:19)
[2021-07-10] MEDS: SENNOSIDES-DOCUSATE SODIUM 1 EACH TAB PO SCH ×2 (08:19→21:35)
[2021-07-11] MEDS: IBUPROFEN 600 MG TAB PO PRN (01:14)
[2021-07-11 06:22] LABS: Basophils % (A) 0 %; Eosinophils # (A) 0.1 k/uL (0-0.7); Eosinophils % (A) 1 %; HCT 31.8 % (34.0-46.0); HGB 10.7 gm/dL (11.4-16.0); Lymphocytes # (A) 2.3 k/uL (1.0-4.8); Lymphocytes % (A) 29 %; MCH 31.3 pg (25.0-35.0); MCHC 33.6 g/dL (31.0-37.0); MCV 93.4 fL (80.0-100.0); Mean Platelet Volume 8.7; Monocytes # (A) 0.4 k/uL (0-1.0); Monocytes % (A) 5 %; Neutrophils % (A) 63 %; Platelet Count 225 k/uL (150-450); RBC 3.41 m/uL (3.80-5.40); RDW 13.8 % (11.5-15.5); WBC 7.9 k/uL (3.8-10.6)
--- NOTE | 2021-07-11 08:13 | P.DS ---
Providers Date of admission: 07/10/21 00:01 Expected date of discharge: 07/11/21 Attending physician: Lenka Forde Primary care physician: Stated None - Discharge Diagnosis(es) (1) Spontaneous rupture of membranes Current Visit: Yes Status: Resolved (2) 38 weeks gestation of Current Visit: Yes Status: Resolved (3) Normal labor Current Visit: Yes Status: Resolved (4) Normal vaginal delivery Current Visit: No Status: Acute Hospital Course: Patient presented in active labor with spontaneous rupture membranes. She underwent a normal vaginal delivery. Her course was uncomplicated. She is tolerating regular diet and passing flatus, denies nausea, vomiting, chest pain, shortness of breath or any calf pain. Her lochia is decreasing. She'll be discharged home day #1 in stable condition to follow-up with me in 6 weeks. Plan - Discharge Summary Discharge Rx Participant: No New Discharge Prescriptions: New Ibuprofen [Motrin] 600 mg PO Q6HR PRN #30 tab PRN Reason: Mild Pain (Scale 1 To 3) Discharge Medication List Ibuprofen [Motrin] 600 mg PO Q6HR PRN #30 tab 07/11/21 [Rx] Follow up Appointment(s)/Referral(s): Lenka Forde DO [Doctor of Osteopathic Medicine] - 6 Weeks Discharge Disposition: HOME SELF-CARE
[2021-07-11 08:18] VITALS: BP 97/60; PULSE 67; RESP 18; TEMP 98.3
[2021-07-11] MEDS: SENNOSIDES-DOCUSATE SODIUM 1 EACH TAB PO SCH (08:19)
== END 2021-07-11 09:15 | disposition home or self-care (01) | DRG 807 ==
LOC: FBPOP 23:40 → 4FBP 07-10 00:01
PROVIDERS: ADMIT Obstetrics & Gynecology; ATTEND Obstetrics & Gynecology
PROC: 10E0XZZ Delivery of Products of Conception, External Approach (ICD-10-PCS; principal; 2021-07-10)
DX: O80 Encounter for full-term uncomplicated delivery (principal); Z37.0 Single live birth; Z3A.38 38 weeks gestation of pregnancy
CPT/HCPCS: 59025; 84112; 85025; 86850; 86900; 86901; 99213